=== PATIENT | male | born 1945 | race Caucasian/White ===

== ENCOUNTER 2016-10-28 05:44 | Day surgery (SDC) | payer OTHER, MEDICARE ==
[2016-10-28] VITALS (12 sets, daily range): BP systolic 112–198; BP diastolic 62–92; PULSE 64–78; RESP 13–19; TEMP 98.2–98.9; O2SAT 94–100; Ht 185.4 cm; Wt 87.8 kg
[~2016-10-28] VITALS: Ht 185.4 cm; Wt 87.8 kg
[~2016-10-28 05:44] MED LIST: ASPI81TA2 PO; CIPR-212 PO; FEXO180T94 PO; HYDR-4246 PO; METF-47 PO; NAPR500T6 PO; ONDA4TAB7 PO; TADA5TAB PO; TAMS-1 PO; TRIA1CAP6 PO
--- OUTSIDE RECORDS SUMMARY | 2016-10-28 05:47 | XMS REPORT ---
Author Author GENERATED, SYSTEM Organization Unknown Address Unknown Phone Unavailable Care Team Providers Care Coordinator Hotels Name Role Phone UNASSIGNED DOCTOR , DOCTOR PP [phone] Reason For Visit Chief Complaint I10, E11.9, N40.0, K63.5 Social History Functional Status Vital Signs Results Problems Encounter Diagnosis No relevant problems exist. Encounters Encounter Diagnosis No relevant problems exist. Plan of Care Procedures No relevant procedures performed. Immunizations No immunizations administered or ordered. Hospital Course Hospital Discharge Instructions Allergies, Adverse Reactions, Alerts * Latex Allergy has not been assessed. * IV Contrast Allergy has not been assessed. Medication Medication reconciliation has not been performed.
--- OUTSIDE RECORDS SUMMARY | 2016-10-28 05:47 | XMS REPORT ---
Author Author GENERATED, SYSTEM Organization Unknown Address Unknown Phone Unavailable Care Team Providers Care Slime Plant Operator Name Role Phone UNASSIGNED DOCTOR , DOCTOR PP [phone] Reason For Visit Chief Complaint E11.9, I10 Social History Functional Status Vital Signs Results Problems Encounter Diagnosis No relevant problems exist. Encounters Encounter Diagnosis No relevant problems exist. Plan of Care Procedures No relevant procedures performed. Immunizations No immunizations administered or ordered. Hospital Course Hospital Discharge Instructions Allergies, Adverse Reactions, Alerts * Contrast causes Swelling/Edema. * Iodine and Iodide Containing Products causes unspecified. * Latex Allergy has not been assessed. * IV Contrast Allergy has not been assessed. * No Known Food Allergies. Medication Medication reconciliation has not been performed.
--- OUTSIDE RECORDS SUMMARY | 2016-10-28 05:47 | XMS REPORT ---
Author Author GENERATED, SYSTEM Organization Unknown Address Unknown Phone Unavailable Care Team Providers Care Fire Extinguisher Repairer Name Role Phone UNASSIGNED DOCTOR , DOCTOR PP [phone] Reason For Visit Reason for Visit from 04/22/2016 3:05 PM:* Pt Stated Reason for Adm : Shingles Vax Chief Complaint PREVENTATIVE MANTENANCE Social History Functional Status Functional Status from 04/22/2016 3:05 PM:* LOC : Alert * Oriented To : Person,Place,Time Vital Signs Hospital Vital Signs from 04/22/2016 3:05 PM:* Weight : 186/ kg * Height : 6/1.5 ft,in * Height : 6/1.5 ft,in * Temperature : 97.5 F * Pulse : 83 * Respirations : 18 * BP : 130/82 Results Problems Encounter Diagnosis No relevant problems exist. Encounters Encounter Diagnosis No relevant problems exist. Plan of Care Procedures No relevant procedures performed. Immunizations No immunizations administered or ordered. Hospital Course Hospital Discharge Instructions Allergies, Adverse Reactions, Alerts * Contrast causes Swelling/Edema. * Iodine and Iodide Containing Products causes unspecified. * No Latex Allergy. * No Known Food Allergies. Medication Medication reconciliation has not been performed.
--- OUTSIDE RECORDS SUMMARY | 2016-10-28 05:47 | XMS REPORT ---
Author Author GENERATED, SYSTEM Organization Unknown Address Unknown Phone Unavailable Care Team Providers Care Section Gang Worker Name Role Phone UNASSIGNED DOCTOR , DOCTOR PP [phone] Reason For Visit Chief Complaint 250.00 Social History Functional Status Vital Signs Results [...]
--- OUTSIDE RECORDS SUMMARY | 2016-10-28 05:47 | XMS REPORT ---
Author Author GENERATED, SYSTEM Organization Unknown Address Unknown Phone Unavailable Care Team Providers Care Tenter Frame Operator Name Role Phone UNASSIGNED DOCTOR , DOCTOR PP [phone] Reason For Visit Chief Complaint 600.00 401.9 250.00 789.09 592.0 Social History Functional Status Vital Signs Results [...]
--- OUTSIDE RECORDS SUMMARY | 2016-10-28 05:47 | XMS REPORT ---
Author Author GENERATED, SYSTEM Organization Unknown Address Unknown Phone Unavailable Care Team Providers Care Elementary School Director Name Role Phone UNASSIGNED DOCTOR , DOCTOR PP [phone] Reason For Visit Chief Complaint SERUM MAGNESIUM, PHOSPH, URIC ACIS, BMP,592.0 Social History Functional Status Vital Signs Results [...]
--- OUTSIDE RECORDS SUMMARY | 2016-10-28 05:47 | XMS REPORT | Continuity of Care Document ---
Author Author [facility] Organization [facility] Address Unknown Phone Unavailable Support Name Relationship Address Phone LOYD BEARD MD Caregiver [address] [place] [phone] BETHANY LOYD DO Caregiver [facility] [address] [place] [phone] ANGELITO WALKER MD Caregiver [address] [place] [address] RONIT MCLAUGHLIN Next Of Kin [address] [place] [address] [address] [place] [id number] Insurance Providers Payer Name Policy Number Subscriber Name Relationship Benefit Management Pcn [id number] Ronit Mclaughlin Spouse Medicare Part A Only [id number] Matt Mclaughlin 19 Self Advance Directives Directive Response Recorded Date/Time Advanced Directives Type None 09/15/14 1:38pm Problems Medical Problems Problem Onset Date Status Urolithiasis Unknown Active Urolithiasis Unknown Active Medications Medication Dose Route Sig Days/Qty Instructions Order Date Discontinued Date Status Triamterene/Hydrochlorothiazid 1 Udtab PO DAILY 04/22/10 Active Aspirin 81 Mg PO DAILY 04/22/10 05/05/14 Discontinued Fish Oil/[place]-3 Fatty Acids 1 Cap PO DAILY 04/21/10 04/22/10 Discontinued Ibuprofen 200 Mg PO FOUR TIMES DAILY 04/21/10 04/22/10 Discontinued Calcium Carbonate 1 Tab PO DAILY 04/21/10 04/22/10 Discontinued Metformin Hcl 500 Mg PO TWICE A DAY 06/10/10 Active Fexofenadine HCl 1 Tab PO DAILY Do not drink Apple, [place], or Grapefruit juice within 4 05/04/14 Active Naproxen Sodium 220 Mg PO NEEDED 05/04/14 05/05/14 Discontinued Aspirin 1 Tab PO DAILY 09/15/14 Active Ciprofloxacin HCl 500 Mg PO EVERY 12 HOURS 7 Days 09/15/14 Active Ondansetron 4 Mg PO Q6H/0300,0900,1500,2100 15 Qty Oral disintegrating tablet 09/15/14 Active Tamsulosin HCl 0.4 Mg PO BEDTIME 7 Qty 09/15/14 Active Hydrocodone/Acetaminophen 1-2 Tab PO Q4H PRN PAIN 30 Qty 09/15/14 Active Social History Social History Problem Response Recorded Date/Time Chewing Tobacco Status No 08/23/2013 9:15am Hx Substance Use No 09/15/2014 1:41pm Hx Alcohol Use Y RARELY 09/15/2014 1:41pm Has the pt used tobacco in the last 12 months No 05/04/2014 12:25pm Query Response Start Date Stop Date Smoking Status Never smoker Hospital Discharge Instructions No hospital discharge instructions. Plan of Care No plan of care. Functional Status Query Response Date Recorded Physical Hygiene Self September 15, 2014 1:41pm Disabilities None September 15, 2014 1:41pm Devices Used Glasses September 15, 2014 1:41pm Dressing Self September 15, 2014 1:41pm Ambulation Self September 15, 2014 1:41pm Diet Self September 15, 2014 1:41pm Mental Status Alert Oriented September 15, 2014 4:20pm Disabilities None September 15, 2014 1:41pm Devices Used Glasses September 15, 2014 1:41pm Physical Hygiene Self September 15, 2014 1:41pm Dressing Self September 15, 2014 1:41pm Ambulation Self September 15, 2014 1:41pm Diet Self September 15, 2014 1:41pm Allergies, Adverse Reactions, Alerts Allergen Type Severity Reaction Status Last Updated Iodinated Contrast Media - IV Dye Allergy Unknown Active 05/04/14 Iodine Allergy Unknown Active 05/04/14 Immunizations Name Given Type Hx Influenza Vaccination Y Apr 2014 Historical Hx Pneumococcal Vaccination No Historical Hx Influenza Vaccination Y Apr 2014 Historical Vital Signs Acute Vital Signs Vital Response Date/Time Temperature (Fahrenheit) 97.3 deg F (96.8 - 99.1) Temperature (Calculated Celsius) 36.85565 degrees C (36.0 - 37.3) Pulse Rate (adult) 69 bpm (60 - 100) Respiratory Rate 18 breaths/min (10 - 20) O2 Sat by Pulse Oximetry 97 % (90 - 100) Blood Pressure 112/55 mm Hg Height 6 ft 1 in Weight 194 lb Body Mass Index 25.0 kg/m^2 Results Test Source Date Result Interp. Ref. Range Comments Activated Partial Thromboplast Time May 04, 2014 2:20pm 39.1 SEC H 24-36 Alanine Aminotransferase (ALT/SGPT) September 15, 2014 2:14pm 45 U/L N 21- 72 Albumin September 15, 2014 2:14pm 4.4 G/DL N 3.5-5.0 Albumin/Globulin Ratio September 15, 2014 2:14pm 1.3 RATIO N 1.1-2.2 Alkaline Phosphatase September 15, 2014 2:14pm 71 U/L N 38-126 Anion Gap September 15, 2014 2:14pm 13 MEQ/L N 5-15 Aspartate Amino Transf (AST/SGOT) September 15, 2014 2:14pm 35 U/L N 17-59 BUN/Creatinine Ratio September 15, 2014 2:14pm 15 RATIO N 6-26 Band Neutrophils # September 15, 2014 2:14pm 0.3 T/MM3 - Band Neutrophils % September 15, 2014 2:14pm 2.0 % N 0-6 Basophils # (Auto) May 05, 2014 5:13am 0.0 T/MM3 N 0-0.2 Basophils (%) (Auto) May 05, 2014 5:13am 0.1 % N 0-2 Blood Urea Nitrogen September 15, 2014 2:14pm 16.0 MG/DL N 9-20 Calcium Level September 15, 2014 2:14pm 9.2 MG/DL N 8.4-10.2 Calculated Osmolality September 15, 2014 2:14pm 276 MOSM/KG N 261-280 Carbon Dioxide Level September 15, 2014 2:14pm 26 MEQ/L N 22-30 Chemistry Specimen Hemolysis September 15, 2014 2:14pm < 15 0-25 0-25: No Hemolysis.26-70: Slight Hemolysis - can falsely elevate K and Urine Protein. 71-285: Moderate Hemolysis - can falsely elevate K, Troponin I, CA 19-9, PTH, CSF GLucose, and Urine Protein, and can falsely decrease Phenytoin. 286-999: Gross Hemolysis - can falsely elevate K, Troponin I, CA 19-9, PTH, CSF Glucose, and Urine Protine, and can falsely decrease Phenytoin. Recommend specimen recollection. Chloride Level September 15, 2014 2:14pm 103 MEQ/L N 98-107 Cholesterol Level December 10, 2008 9:23am 208 MG/DL H 132-199 Cholesterol/HDL Ratio December 10, 2008 9:23am 5.0 RATIO N 0-5.0 Creatinine September 15, 2014 2:14pm 1.1 MG/DL N 0.8-1.5 Eosinophils # (Auto) May 05, 2014 5:13am 0.1 T/MM3 N 0-0.5 Eosinophils (%) (Auto) May 05, 2014 5:13am 1.0 % N 0-4 Globulin September 15, 2014 2:14pm 3.4 G/DL N 2.4-3.6 Glomerular Filtration Rate Calc September 15, 2014 2:14pm 67 - Glucometer May 05, 2014 10:55am 129 mg/dL H 75-110 Glucose Level September 15, 2014 2:14pm 136 MG/DL H 75-110 HDL Cholesterol Direct December 10, 2008 9:23am 38 MG/DL L 40-60 Hematocrit September 15, 2014 2:14pm 43.4 % N 41-53 Hemoglobin September 15, 2014 2:14pm 14.5 GM/DL N 13.5-17.5 Icterus Index September 15, 2014 2:14pm < 2 0-7 Immature Granulocyte # (Auto) May 05, 2014 5:13am 0.01 T/MM3 N 0.00 -0.03 Immature Granulocyte % (Auto) May 05, 2014 5:13am 0.1 % N 0.0-0.5 LDL Cholesterol, Calculated December 10, 2008 9:23am 139.0 N 66-159 Lab Scanned Report May 04, 2014 1:33pm LAB TEST FORM REQUEST [id number] - Lipase September 15, 2014 2:14pm 250 U/L N 23-300 Lymphocytes # (Auto) May 05, 2014 5:13am 1.2 T/MM3 N 1-4.8 Lymphocytes # (Manual) September 15, 2014 2:14pm 0.7 T/MM3 L 1-4.8 Lymphocytes % (Manual) September 15, 2014 2:14pm 5.0 % L 23-45 Lymphocytes (%) (Auto) May 05, 2014 5:13am 14.2 % L 23-45 Mean Corpuscular Hemoglobin September 15, 2014 2:14pm 28.5 UUG N 26-34 Mean Corpuscular Hemoglobin Concent September 15, 2014 2:14pm 33.4 GM/DL N 31-37 Mean Corpuscular Volume September 15, 2014 2:14pm 85.4 UM3 N 80-100 Mean Platelet Volume September 15, 2014 2:14pm 10.8 UM3 N 9.4-12.4 Monocytes # (Auto) May 05, 2014 5:13am 0.9 T/MM3 H 0-0.8 Monocytes # (Manual) September 15, 2014 2:14pm 0.6 T/MM3 N 0-0.8 Monocytes % (Manual) September 15, 2014 2:14pm 4.0 % N 0-9.0 Monocytes (%) (Auto) May 05, 2014 5:13am 10.8 % H 0-9.0 Neutrophils # (Auto) May 05, 2014 5:13am 6.3 T/MM3 N 1.8-7.7 Neutrophils # (Manual) September 15, 2014 2:14pm 12.7 T/MM3 H 1.8-7.7 Neutrophils % (Manual) September 15, 2014 2:14pm 89.0 % H 33-66 Neutrophils (%) (Auto) May 05, 2014 5:13am 73.8 % H 33-66 Platelet Count September 15, 2014 2:14pm 170 T/MM3 N 130-400 Potassium Level September 15, 2014 2:14pm 3.6 MEQ/L N 3.6-5 Prostate Specific Antigen Screen January 09, 2008 8:20am 1.15 NG/ML N 0- 4.0 Prothromb Time International Ratio May 04, 2014 2:20pm 1.12 H 0.81- 1.09 THERAPUTIC RANGE=2.00-3.00 FOR ANTI-THROMBOSIS THERAPUTIC RANGE=2.50- 3.50 FOR IMPLANTED VALVE RDW Standard Deviation September 15, 2014 2:14pm 38.8 FL N 36.9-50.2 Red Blood Count September 15, 2014 2:14pm 5.08 M/MM3 N 4.50-5.90 Red Cell Morphology Comment September 15, 2014 2:14pm Normal - Sodium Level September 15, 2014 2:14pm 142 MEQ/L N 134-144 Total Bilirubin September 15, 2014 2:14pm 0.50 MG/DL N 0.20-1.30 Total Protein September 15, 2014 2:14pm 7.8 G/DL N 6.3-8.2 Triglycerides Level December 10, 2008 9:23am 155 MG/DL N 40-160 Turbidity September 15, 2014 2:14pm < 20 0-20 Urinalysis Comment September 15, 2014 2:35pm Microscopic not ind. - Has specimen been collected/obtained? Y Urine Bacteria May 04, 2014 11:40am 1+ H - Urine Bilirubin September 15, 2014 2:35pm Negative - Has specimen been collected/obtained? Y Urine Blood September 15, 2014 2:35pm Negative - Has specimen been collected/obtained? Y Urine Collection Type September 15, 2014 2:35pm Voided-not cc-midstr - Has specimen been collected/obtained? Y Urine Color September 15, 2014 2:35pm Yellow - Has specimen been collected/obtained? Y Urine Culture Indicated May 04, 2014 11:40am Cult ordered & setup - Urine Glucose (UA) September 15, 2014 2:35pm Negative - Has specimen been collected/obtained? Y Urine Ketones September 15, 2014 2:35pm 1+ H - Has specimen been collected/ obtained? Y Urine Leukocyte Esterase September 15, 2014 2:35pm Negative - Has specimen been collected/obtained? Y Urine Nitrite September 15, 2014 2:35pm Negative - Has specimen been collected/obtained? Y Urine Protein September 15, 2014 2:35pm Negative - Has specimen been collected/obtained? Y Urine RBC May 04, 2014 11:40am 10-20 /HPF H - Urine Specific [place] September 15, 2014 2:35pm 1.015 - Has specimen been collected/obtained? Y Urine Turbidity September 15, 2014 2:35pm Clear - Has specimen been collected/obtained? Y Urine Urobilinogen September 15, 2014 2:35pm 0.2 EU/DL - Has specimen been collected/obtained? Y Urine WBC May 04, 2014 11:40am 3-5 /HPF - Urine pH September 15, 2014 2:35pm 6.0 - Has specimen been collected/ obtained? Y VLDL Cholesterol December 10, 2008 9:23am 31.0 MG/DL H 0-28 Venous Blood Lactate May 04, 2014 11:40am 1.1 MMOL/L N 0.6-2.2 White Blood Count September 15, 2014 2:14pm 14.3 T/MM3 H 4.5-11.0 Urine Culture Urine, Clean Catch-Midstream May 04, 2014 11:40am Gram Positive Organism Procedures No known history of procedures. Encounters Encounter Location Date/Time Departed Emergency Room [facility] 09/15/14 1:18pm Recent Diagnosis
--- OUTSIDE RECORDS SUMMARY | 2016-10-28 05:47 | XMS REPORT ---
Author Author GENERATED, SYSTEM Organization Unknown Address Unknown Phone Unavailable Care Team Providers Care Outsole Caser Name Role Phone UNASSIGNED DOCTOR , DOCTOR PP [phone] Reason For Visit Chief Complaint 250.00, 401.9, 592.0, 600.00 Social History Functional Status Vital Signs Results [...]
--- OUTSIDE RECORDS SUMMARY | 2016-10-28 05:47 | XMS REPORT | Continuity of Care Document ---
Author Author [facility] Organization [facility] Address Unknown Phone Unavailable Support Name Relationship Address Phone LESTER PURDY DO Caregiver [facility] [address] [place] [address] [place] [address] BETHANY LOYD DO Caregiver [facility] [address] [place] [address] [address] [place] [phone] RONIT MCLAUGHLIN Next Of Kin [address] [place] [address] Insurance Providers Payer Name Policy Number Subscriber Name Relationship Benefit Management Pcn [id number] Ronit Mclaughlin Spouse Medicare Part A Only [id number] Matt Mclaughlin 19 Self Advance Directives Directive Response Recorded Date/Time Ordered Resuscitation Status Full Code 05/04/14 1:49pm Problems No known problems or medical conditions. Medications Medication Dose Route Sig Days/Qty Instructions Order Date Discontinued Date Status Triamterene/Hydrochlorothiazid 1 Udtab PO DAILY 04/22/10 Active Aspirin 81 Mg PO DAILY 04/22/10 05/05/14 Discontinued Fish Oil/[place]-3 Fatty Acids 1 Cap PO DAILY 04/21/10 04/22/10 Discontinued Ibuprofen 200 Mg PO FOUR TIMES DAILY 04/21/10 04/22/10 Discontinued Calcium Carbonate 1 Tab PO DAILY 04/21/10 04/22/10 Discontinued Metformin Hcl 500 Mg PO TWICE A DAY 06/10/10 Active Fexofenadine HCl 1 Tab PO DAILY Do not drink Apple, [place], or Grapefruit juice within 4 05/04/14 Active Naproxen Sodium 220 Mg PO NEEDED 05/04/14 05/05/14 Discontinued Ondansetron 4 Mg PO Q8H @ 0100/0900/1700 PRN NAUSEA 30 Qty Orally disintegrating tablet 05/05/14 Active Hydrocodone/Acetaminophen 1-2 Tab PO EVERY 3-4 HOURS PRN PAIN 30 Qty Active Nitrofurantoin Monohyd/M-Cryst 1 Cap PO TWICE DAILY WITH MEALS 10 Days 05/05/14 Active Mth/Me Blue/Salicy/Na Phos/Hyo 1 Tab PO EVERY 4 HOURS PRN PAIN 40 Qty 05/05/14 Active Social History Social History Problem Response Recorded Date/Time Smoking Status Never smoker 05/04/2014 12:25pm Chewing Tobacco Status No 08/23/2013 9:15am Hx Substance Use No 08/23/2013 9:15am Hx Alcohol Use Y RARELY 08/23/2013 9:15am Has the pt used tobacco in the last 12 months No 05/04/2014 12:25pm Query Response Start Date Stop Date Smoking Status Never smoker Hospital Discharge Instructions Instructions: Care Instructions: Reason for Hospitalization: NEPHROLITHIASIS, HYDRONEPHROSIS I was in the hospital because (patient own words): States,"Pain and they found blood in my urine. I have a stone." Discharge Diet: DIABETIC Discharge Activity: TOLERATED Follow Up Appointments: FOLLOW UP WITH DR. BEARD IN HIS OFFICE ON 05/14/14 AT 11:[address] UP [address] LOYD AT [facility] ([phone]) IN 1-2 WEEKS. GET CBC WITH DIFF, BMP AND PTT, PT AND INR AT [facility] BEFORE FOLLOW-UP APPOINTMENT WITH DR. LOYD AND FAX TO DR. LOYD OFFICE. ORDERS FAXED; TAKE COPY OF ORDERS WITH YOU TO Patient Instructions: RETURN TO CARE IMMEDIATELY IF BACK PAIN, GROIN PAIN, BLOOD IN URINE, NAUSEA, VOMITING, ABDOMINAL PAIN OCCUR. General Information: DO NOT TAKE ANY TYLENOL PRODUCTS AT ALL WHILE TAKING NORCO. Condition at time of discharge: Good KEEP THE AREA DRY. Condition at time of discharge: Good incision is completely healed. Mepilex 1.Dressing to remain in place until your follow up appointment. 2.If this dressing starts peeling up slightly, it may be reinforced, if it peels excessively, notify your surgeon's office. 3.You may shower with the dressing in place, but do not submerge in water 4.Do not allow water to seep under the dressing, if it should seep under, remove the dressing and notify your surgeon. Notify Physician If: Call your Surgeon if you have: 1.Chest pain, difficulty breathing, fever>100.5 degrees, chills, heart rate >100, confusion, or persistent nausea/vomitting. 2.Severe pain, swelling, redness, or warmth in either of your legs. 3.During office hours, call [phone] 4. After hours, please call [facility] at [phone], and have the heddle machine operator page your Surgeon IN THE EVENT OF AN EMERGENCY, seek medical care at the nearest Emergency Room Condition at time of discharge: Good Plan of Care Discharge Date 05/05/14 5:00pm Disposition 01 DISCHARGED HOME, SELF-CARE Instructions/Education Provided DI for Cystoscopy DI for Ureteral Stent Placement Prescriptions See Medications Section Functional Status No functional status results. Allergies, Adverse Reactions, Alerts Allergen Type Severity Reaction Status Last Updated Iodinated Contrast Media - IV Dye Allergy Unknown Active 05/04/14 Iodine Allergy Unknown Active 05/04/14 Immunizations Name Given Type Hx Influenza Vaccination Y Apr 2014 Historical Hx Pneumococcal Vaccination No Historical Hx Influenza Vaccination Y Apr 2014 Historical Vital Signs Acute Vital Signs Vital Response Date/Time Temperature (Fahrenheit) 95.6 deg F (96.8 - 99.1) Temperature (Calculated Celsius) 35.92505 degrees C (36.0 - 37.3) Temperature Source Oral Pulse Rate (adult) 88 bpm (60 - 100) O2 Sat by Pulse Oximetry 97 % (90 - 100) Oxygen Delivery Method Room Air Blood Pressure 144/79 mm Hg Blood Pressure Source Automatic Cuff Height 6 ft 1 in Weight 203 lb Body Mass Index 26.0 kg/m^2 Results Test Source Date Result Interp. Ref. Range Comments Activated Partial Thromboplast Time May 04, 2014 2:20pm 39.1 SEC H 24-36 Alanine Aminotransferase (ALT/SGPT) May 05, 2014 5:13am 38 U/L N 21 -72 Albumin May 05, 2014 5:13am 3.7 G/DL N 3.5-5.0 Albumin/Globulin Ratio May 05, 2014 5:13am 1.4 RATIO N 1.1-2.2 Alkaline Phosphatase May 05, 2014 5:13am 56 U/L DN 38-126 Anion Gap May 05, 2014 5:13am 9 MEQ/L N 5-15 Aspartate Amino Transf (AST/SGOT) May 05, 2014 5:13am 18 U/L N 17- 59 BUN/Creatinine Ratio May 05, 2014 5:13am 16 RATIO N 6-26 Band Neutrophils # May 04, 2014 11:40am 0.1 T/MM3 - Band Neutrophils % May 04, 2014 11:40am 1.0 % N 0-6 Basophils # (Auto) May 05, 2014 5:13am 0.0 T/MM3 N 0-0.2 Basophils (%) (Auto) May 05, 2014 5:13am 0.1 % N 0-2 Blood Urea Nitrogen May 05, 2014 5:13am 18.0 MG/DL N 9-20 Calcium Level May 05, 2014 5:13am 8.7 MG/DL DN 8.4-10.2 Calculated Osmolality May 05, 2014 5:13am 280 MOSM/KG N 261-280 Carbon Dioxide Level May 05, 2014 5:13am 31 MEQ/L H 22-30 Chemistry Specimen Hemolysis May 05, 2014 5:13am < 15 0-25 0-25 : No Hemolysis.26-70: Slight Hemolysis - can falsely elevate K and Urine Protein. 71-285: Moderate Hemolysis - can falsely elevate K, Troponin I, CA 19-9, PTH, CSF GLucose, and Urine Protein, and can falsely decrease Phenytoin. 286-999: Gross Hemolysis - can falsely elevate K, Troponin I, CA 19-9, PTH, CSF Glucose, and Urine Protine, and can falsely decrease Phenytoin. Recommend specimen recollection. Chloride Level May 05, 2014 5:13am 104 MEQ/L N 98-107 Cholesterol Level December 10, 2008 9:23am 208 MG/DL H 132-199 Cholesterol/HDL Ratio December 10, 2008 9:23am 5.0 RATIO N 0-5.0 Creatinine May 05, 2014 5:13am 1.1 MG/DL N 0.8-1.5 Eosinophils # (Auto) May 05, 2014 5:13am 0.1 T/MM3 N 0-0.5 Eosinophils (%) (Auto) May 05, 2014 5:13am 1.0 % N 0-4 Globulin May 05, 2014 5:13am 2.7 G/DL N 2.4-3.6 Glomerular Filtration Rate Calc May 05, 2014 5:13am 67 - Glucometer May 05, 2014 10:55am 129 mg/dL H 75-110 Glucose Level May 05, 2014 5:13am 120 MG/DL H 75-110 HDL Cholesterol Direct December 10, 2008 9:23am 38 MG/DL L 40-60 Hematocrit May 05, 2014 5:13am 40.2 % DL 41-53 Hemoglobin May 05, 2014 5:13am 13.3 GM/DL DL 13.5-17.5 Icterus Index May 05, 2014 5:13am < 2 0-7 Immature Granulocyte # (Auto) May 05, 2014 5:13am 0.01 T/MM3 N 0.00 -0.03 Immature Granulocyte % (Auto) May 05, 2014 5:13am 0.1 % N 0.0-0.5 LDL Cholesterol, Calculated December 10, 2008 9:23am 139.0 N 66-159 Lab Scanned Report May 04, 2014 1:33pm LAB TEST FORM REQUEST - Lymphocytes # (Auto) May 05, 2014 5:13am 1.2 T/MM3 N 1-4.8 Lymphocytes # (Manual) May 04, 2014 11:40am 0.8 T/MM3 L 1-4.8 Lymphocytes % (Manual) May 04, 2014 11:40am 7.0 % L 23-45 Lymphocytes (%) (Auto) May 05, 2014 5:13am 14.2 % L 23-45 Mean Corpuscular Hemoglobin May 05, 2014 5:13am 28.9 UUG N 26-34 Mean Corpuscular Hemoglobin Concent May 05, 2014 5:13am 33.1 GM/DL N 31-37 Mean Corpuscular Volume May 05, 2014 5:13am 87.2 UM3 N 80-100 Mean Platelet Volume May 05, 2014 5:13am 10.6 UM3 N 9.4-12.4 Monocytes # (Auto) May 05, 2014 5:13am 0.9 T/MM3 H 0-0.8 Monocytes # (Manual) May 04, 2014 11:40am 0.6 T/MM3 N 0-0.8 Monocytes % (Manual) May 04, 2014 11:40am 5.0 % N 0-9.0 Monocytes (%) (Auto) May 05, 2014 5:13am 10.8 % H 0-9.0 Neutrophils # (Auto) May 05, 2014 5:13am 6.3 T/MM3 N 1.8-7.7 Neutrophils # (Manual) May 04, 2014 11:40am 10.5 T/MM3 H 1.8-7.7 Neutrophils % (Manual) May 04, 2014 11:40am 87.0 % H 33-66 Neutrophils (%) (Auto) May 05, 2014 5:13am 73.8 % H 33-66 Platelet Count May 05, 2014 5:13am 155 T/MM3 N 130-400 Potassium Level May 05, 2014 5:13am 3.5 MEQ/L L 3.6-5 Prostate Specific Antigen Screen January 09, 2008 8:20am 1.15 NG/ML N 0- 4.0 Prothromb Time International Ratio May 04, 2014 2:20pm 1.12 H 0.81- 1.09 THERAPUTIC RANGE=2.00-3.00 FOR ANTI-THROMBOSIS THERAPUTIC RANGE=2.50- 3.50 FOR IMPLANTED VALVE RDW Standard Deviation May 05, 2014 5:13am 39.8 FL N 36.9-50.2 Red Blood Count May 05, 2014 5:13am 4.61 M/MM3 N 4.50-5.90 Sodium Level May 05, 2014 5:13am 144 MEQ/L N 134-144 Total Bilirubin May 05, 2014 5:13am 0.80 MG/DL N 0.20-1.30 Total Protein May 05, 2014 5:13am 6.4 G/DL N 6.3-8.2 Triglycerides Level December 10, 2008 9:23am 155 MG/DL N 40-160 Turbidity May 05, 2014 5:13am < 20 0-20 Urine Bacteria May 04, 2014 11:40am 1+ H - Urine Bilirubin May 04, 2014 11:40am Negative - Urine Blood May 04, 2014 11:40am 3+ H - Urine Collection Type May 04, 2014 11:40am Cleancatch-midstream - Urine Color May 04, 2014 11:40am Yellow - Urine Culture Indicated May 04, 2014 11:40am Cult ordered & setup - Urine Glucose (UA) May 04, 2014 11:40am Negative - Urine Ketones May 04, 2014 11:40am 1+ H - Urine Leukocyte Esterase May 04, 2014 11:40am Negative - Urine Nitrite May 04, 2014 11:40am Negative - Urine Protein May 04, 2014 11:40am Negative - Urine RBC May 04, 2014 11:40am 10-20 /HPF H - Urine Specific [place] May 04, 2014 11:40am >=1.030 H - Urine Turbidity May 04, 2014 11:40am Clear - Urine Urobilinogen May 04, 2014 11:40am 0.2 EU/DL - Urine WBC May 04, 2014 11:40am 3-5 /HPF - Urine pH May 04, 2014 11:40am 5.5 - VLDL Cholesterol December 10, 2008 9:23am 31.0 MG/DL H 0-28 Venous Blood Lactate May 04, 2014 11:40am 1.1 MMOL/L N 0.6-2.2 White Blood Count May 05, 2014 5:13am 8.6 T/MM3 N 4.5-11.0 Urine Culture Urine, Clean Catch-Midstream May 04, 2014 11:40am Gram Positive Organism Name: MATT MCLAUGHLIN Unit #: [id number] : 1945 Sex: M Loc / Svc: HALLEY DOS: 05/04/14 Signed Report #: [id number] DIAGNOSTIC IMAGING REPORT TYPE OF EXAM: CT RENAL W/O CONTRAST Dictated By: GORGE JOSE MD INDICATION: ITS.REASON: [phone],599.70 KIDNEY STONE COMPARISON: none. CT RENAL W/O CONTRAST: CT with kidney stone protocol. Evidence of a 5 mm calculus in the mid left ureter that is causing moderate hydronephrosis. There is perinephric fat infiltration that is consistent with a kidney stone. Right kidney has approximately 4 nonobstructing calculi with diameters of approximately 2-5 mm. Evidence of a 1-2 cm right kidney cyst. No evidence of gallstones. Liver, spleen, pancreas, and bladder appear normal. Evidence of mildly enlarged prostate with calcifications. No evidence of diverticulitis. IMPRESSION: Nonobstructing right kidney stones. Stone in the mid left ureter causing hydronephrosis. . Procedures Procedure Status Date Provider(s) Cystoscopy with calculus extraction completed 05/05/14 LOYD BEARD MD Encounters Encounter Location Date/Time Discharged Inpatient [facility] 05/04/14 12:14pm Registered Clinic [facility] 05/04/14 11:03am
--- OUTSIDE RECORDS SUMMARY | 2016-10-28 05:47 | XMS REPORT ---
Author Author [facility] Organization Unknown Address Unknown Phone Unavailable Care Team Providers Care Paper Counter Name Role Phone UNASSIGNED DOCTOR , DOCTOR PP [phone] Reason For Visit Chief Complaint N40.1 Social History Functional Status Vital Signs Results Reference Lab from 01/03/2016 8:30 AMPROSTATE-SPECIFIC AG 2.3 ng/mL (0.0-4.0 ng/mL ) Problems Encounter Diagnosis No relevant problems exist. [...]
--- OUTSIDE RECORDS SUMMARY | 2016-10-28 05:48 | XMS REPORT ---
Author Author [facility] Organization Unknown Address Unknown Phone Unavailable Care Team Providers Care Powerhouse Attendant Name Role Phone UNASSIGNED DOCTOR , DOCTOR PP [phone] Reason For Visit Chief Complaint COUGH,SORE THROAT,FEVER Social History Functional Status Vital Signs Results [...]
--- OUTSIDE RECORDS SUMMARY | 2016-10-28 05:48 | XMS REPORT ---
Author Author [facility] Organization Unknown Address Unknown Phone Unavailable Care Team Providers Care Grain Shipper Name Role Phone UNASSIGNED DOCTORMD DOCTOR PP [phone] Reason For Visit Chief Complaint 250.00,36412,401.9 Social History Functional Status Vital Signs Results [...]
--- OUTSIDE RECORDS SUMMARY | 2016-10-28 05:48 | XMS REPORT ---
Author Author [facility] Organization Unknown Address Unknown Phone Unavailable Care Team Providers Care Concrete Layer Name Role Phone UNASSIGNED DOCTOR , DOCTOR PP [phone] Reason For Visit Chief Complaint E11.9 N40.0 I10 Social History Functional Status Vital Signs Results Chemistry from 02/03/2016 8:25 AMSODIUM 141 MMOL/L (136-145 MMOL/L) POTASSIUM 3.7 MMOL/L (3.5-5.1 MMOL/L) CHLORIDE 107 MMOL/L (98-107 MMOL/L) TCO2 28.6 MMOL/L (21.0-32.0 MMOL/L) *ANION GAP 5.4 MMOL/L L (8.0-16.0 MMOL/L) BUN 16 MG/DL (7-18 MG/DL) CREATININE 0.97 MG/DL (0.70-1.30 MG/DL) *BUN/CREATININE RATIO 16.5 (9.1-17.0 ) GLUCOSE 109 MG/DL H (65-99 MG/DL) *GFR EST NON AFR [place] 79 ML/MIN *GFR EST AFR AMER >90 ML/MIN CALCIUM 8.4 MG/DL L (8.5-10.1 MG/DL) BILIRUBIN TOTAL 0.50 MG/DL (0.20-1.00 MG/DL) TOTAL PROTEIN 6.8 GM/DL (6.4-8.2 GM/DL) ALBUMIN 3.6 GM/DL (3.4-5.0 GM/DL) *GLOBULIN 3.2 GM/DL (2.3-3.5 GM/DL) *A/G RATIO 1.1 MG/DL L (1.5-2.2 MG/DL) ALK PHOS 63 U/L (46-116 U/L) ALT (SGPT) 34 U/L (14-59 U/L) AST (SGOT) 22 U/L (15-37 U/L) *EST AVG GLUCOSE 122.6 gm/dl CHOLESTEROL 170 MG/DL (50-199 MG/DL) TRIGLYCERIDES 117 MG/DL (0-149 MG/DL) HDL CHOLESTEROL 43 MG/DL (40-60 MG/DL) LDL (CALCULATED CHOL 104 MG/DL H (0-99 MG/DL) HEMOGLOBIN A1C 5.9 % (4.5-6.2 %) Reference Lab from 02/03/2016 8:30 AMMICROALBUMIN URINE RANDOM 35.6 ug/mL (Not Estab. ug/mL) Problems Encounter Diagnosis No relevant problems exist. [...]
--- OUTSIDE RECORDS SUMMARY | 2016-10-28 05:48 | XMS REPORT ---
Author Author [facility] Organization Unknown Address Unknown Phone Unavailable Care Team Providers Care Wood Polisher Name Role Phone UNASSIGNED DOCTOR , DOCTOR PP [phone] Reason For Visit Chief Complaint SERUM MAGNESIUM, PHOSPH URIC ACID BMP,592.0 Social History Functional Status Vital Signs [...]
--- OUTSIDE RECORDS SUMMARY | 2016-10-28 05:48 | XMS REPORT | Continuity of Care Document ---
Author Author [facility] Organization [facility] Address Unknown Phone Unavailable Support Name Relationship Address Phone LESTER PURDY DO Caregiver [facility] [address] [place] [address] [place] [address] BETHANY LOYD DO Caregiver [facility] [address] [place] [address] [address] [place] [phone] RONIT MCLAUGHLIN Next Of Kin [address] [place] [address] Insurance Providers Payer Name Policy Number Subscriber Name Relationship Benefit Management Pcn [id number] Ronit Mclaughlin Spouse Medicare Part A Only [id number] Matt Mclaughlin 19 Self Advance Directives Directive Response Recorded Date/Time Ordered Resuscitation Status Full Code 05/04/14 1:49pm Problems No known problems or medical conditions. Medications Medication Dose Route Sig Days/Qty Instructions Order Date Discontinued Date Status Triamterene/Hydrochlorothiazid 1 Udtab PO DAILY 04/22/10 Active Aspirin 81 Mg PO DAILY 04/22/10 05/05/14 Discontinued Fish Oil/[place]-3 Fatty Acids 1 Cap PO DAILY 04/21/10 04/22/10 Discontinued Ibuprofen 200 Mg PO FOUR TIMES DAILY 04/21/10 04/22/10 Discontinued Calcium Carbonate 1 Tab PO DAILY 04/21/10 04/22/10 Discontinued Metformin Hcl 500 Mg PO TWICE A DAY 06/10/10 Active Fexofenadine HCl 1 Tab PO DAILY Do not drink Apple, [place], or Grapefruit juice within 4 05/04/14 Active [...] Care No plan of care. Functional Status No functional status results. Allergies, [...] F (96.8 - 99.1) Temperature (Calculated Celsius) 35.42350 degrees C (36.0 - 37.3) Temperature Source [...] 05, 2014 5:13am 31 MEQ/L H 22-30 Chloride Level May 05, 2014 5:13am 104 [...] 05, 2014 5:13am 2.7 G/DL N 2.4-3.6 Glucose Level May 05, 2014 5:13am 120 MG/DL H 75-110 Hematocrit May 05, 2014 5:13am 40.2 % DL 41-53 Hemoglobin May 05, 2014 5:13am 13.3 GM/DL DL 13.5-17.5 LDL Cholesterol, Calculated December 10, 2008 9:23am 139.0 N 66-159 Lymphocytes # (Auto) May 05, 2014 5:13am [...] 10, 2008 9:23am 155 MG/DL N 40-160 Urine Bacteria May 04, 2014 11:40am 1+ [...] 11:40am 10-20 /HPF H - Urine Specific [place] May 04, 2014 11:40am >=1.030 H - Urine Turbidity May 04, 2014 11:40am Clear - Urine Urobilinogen May 04, 2014 11:40am 0.2 EU/DL - Urine WBC May 04, 2014 11:40am 3-5 /HPF - Urine pH May 04, 2014 11:40am 5.5 - VLDL Cholesterol December 10, 2008 9:23am 31.0 MG/DL H 0-28 White Blood Count May 05, 2014 5:13am 8.6 T/MM3 N 4.5-11.0 Chemistry Specimen Hemolysis May 05, 2014 5:13am [...] can falsely decrease Phenytoin. Recommend specimen recollection. Glucometer May 05, 2014 10:55am 129 mg/dL H 75-110 Lab Scanned Report May 04, 2014 1:33pm LAB TEST FORM REQUEST [id number] - HDL Cholesterol Direct December 10, 2008 9:23am 38 MG/DL L 40-60 Turbidity May 05, 2014 5:13am < 20 0-20 Glomerular Filtration Rate Calc May 05, 2014 5:13am 67 - Immature Granulocyte # (Auto) May 05, 2014 5:13am 0.01 T/MM3 N 0.00 -0.03 Immature Granulocyte % (Auto) May 05, 2014 5:13am 0.1 % N 0.0-0.5 Venous Blood Lactate May 04, 2014 11:40am 1.1 MMOL/L N 0.6-2.2 Icterus Index May 05, 2014 5:13am < 2 0-7 Urine Culture Urine, Clean Catch-Midstream May 04, 2014 11:40am Gram Positive Organism Name: MATT MCLAUGHLIN Unit #: [id number] : 1945 Sex: M Loc / Svc: HALLEY DOS: 05/04/14 Signed Report #: [id number] DIAGNOSTIC IMAGING REPORT TYPE OF EXAM: CT [...] LOYD BEARD MD Encounters Encounter Location Date/Time Registered Clinic [facility] 05/04/14 11:03am
--- OUTSIDE RECORDS SUMMARY | 2016-10-28 05:48 | XMS REPORT | Summary of Care ---
Author Author Flakito Clark M.D. Organization Unknown Address Unknown Phone Unavailable Care Team Providers Care Glove Presser Name Role Phone Flakito Clark M.D. Unavailable Unavailable Luis E Milner PP Unavailable Unavailable Unavailable Functional Status Functional Status Health Issues* Name Dates Details Functional status health issues are not documented Status: Cognitive Status Health Issues* Name Dates Details Cognitive status health issues are not documented Status: Problems Name Dates Details Myopia (367.1, H52.10) Status: Active Presbyopia (367.4, H52.4) Status: Active Vitreous disorder (379.29, H43.9) Status: Active Round hole of retina without detachment, left (361.31, H33.322) Status: Active Lentigo (709.09, L81.4) Status: Active Chalazion (373.2, H00.19) Status: Active Diabetes mellitus (250.00, E11.9) Status: Active 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, 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 Actinic keratosis (702.0, L57.0) Status: Active Seborrheic keratosis (702.19, L82.1) Status: Active Diabetes mellitus type 2 without retinopathy (250.00, E11.9) Status: Active 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, 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 Combined form of senile cataract of left eye (366.19, H25.812) Status: Active Nodular prostate with urinary obstruction (600.11, N40.3) Status: Active Prostatic stone (602.0, N42.0) Status: Active Left ureteral calculus (592.1, N20.1) Status: Active Ureteral colic (788.0, N23) Status: Active Ureteric obstruction (593.4, N13.5) Status: Active Retained ureteral stent (V43.89, Z96.0) Status: Active Hyperoxaluria (271.8, E72.53) Status: Active Low urine output (788.5, R34) Status: Active Hypernatriuria (276.0, E87.0) Status: Active BPH with obstruction/lower urinary tract symptoms (600.01, N40.1) Status: Active History of kidney stones (V13.01, Z87.442) Status: Active Erectile dysfunction (607.84, N52.9) Status: Active Medications Name Dates Details MetFORMIN HCl - 500 MG Oral Tablet TAKE 1 TABLET EVERY 12 HOURS WITH FOOD. * Started 02-May-2013 ActiveAleve 220 MG Oral Capsule TAKE 1 TABLET DAILY NEEDED. * Refills: 0 * Started 02-May-2013 ActiveAllegra Allergy 180 MG Oral Tablet TAKE 1 TABLET DAILY NEEDED. * Refills: 0 * Started 02-May-2013 ActiveAspirin 81 MG TABS TAKE 1 TABLET DAILY. * Refills: 0 * Started 02-May-2013 ActiveCialis 5 MG Oral Tablet TAKE 1 TABLET DAILY 1 HOUR BEFORE NEEDED * Quantity: 30 Refills: 0 Flakito Clark M.D.ActiveTriamterene-HCTZ 37.5-25 MG Oral Capsule TAKE 1 CAPSULE DAILY. 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) Status: Resolved History of BPH (benign prostatic hypertrophy) (600.00, N40.0) Status: Resolved History of Dyslipidemia (272.4, E78.5) Status: Resolved History of osteoarthritis (V13.4, Z87.39) Status: Resolved History of Plantar fasciitis (728.71, M72.2) Status: Resolved History of skin cancer (V10.83, Z85.828) Status: Resolved History of type 2 diabetes mellitus (V12.29, Z86.39) Status: Resolved Procedures Procedure Dates Details History of Biopsy Of The Prostate Needle History of Cystoscopy (Diagnostic) History of Surgical Equipment Laser Devices PVP History of Cystoscopy With Ureteroscopy Left Procedures not documented Immunization Name Dates Details Immunizations not documented Family History Unknown Family Member* Name Dates Details Family history of glaucoma (V19.11, Z83.511) Comments: Family History Status: Active Family history of colonic polyps (V18.51, Z83.71) Comments: Family History Status: Active Mother* Name Dates Details Family history of diabetes mellitus (V18.0, Z83.3) Status: Active Family history of peripheral vascular disease (V17.49, Z82.49) Status: Active Family history of cardiac disorder (V17.49, Z82.49) Status: Active Father* Name Dates Details Family history of diabetes mellitus (V18.0, Z83.3) Status: Active Family history of lymphoma (V16.7, Z80.2) Status: Active Social History Name Dates Details Smoking Status* Unknown if ever smoked * Never smoker Vital Signs Date Test Result Details 14:35 BP Systolic 124 mm[Hg] Status: BP Diastolic 84 mm[Hg] Status: Heart Rate 90 /min Status: Height 72 in Status: Weight 186 lb Status: Body Mass Index Calculated 25.23 kg/m2 Status: Body Surface Area Calculated 2.07 m2 Status: Results Date Description Value Details Results not documented Plan of Care Planned Observations* Name Dates Details Planned Goals not documented Goal Planned Encounters* Appointment; Provider: Russell Whatley On 10:45 * Appointment; Provider: Tay Bailey On 02-Jun-2016 08:45 * Appointment; Provider: Adria Ordoñez On 20-Apr-2016 08:30 Instructions * Instructions not documented Encounters Appointment; Flakito Clark Encounter Diagnosis: Problem not documented On 14:30 Appointment; Tay Bailey Encounter Diagnosis: Problem not documented On 29-May-2015 08:45 Appointment; Adria Ordoñez Encounter Diagnosis: Problem not documented On 18-Apr-2015 08:30 Appointment; Adria Ordoñez Encounter Diagnosis: Problem not documented On 08-Nov-2014 08:30 Appointment; aTy Bailey Encounter Diagnosis: Problem not documented On 28-May-2014 08:45 Appointment; Adria Ordoñez Encounter Diagnosis: Problem not documented On 07-May-2014 06:00 Appointment; Adria Ordoñez Encounter Diagnosis: Problem not documented On 03-May-2014 08:30
--- OUTSIDE RECORDS SUMMARY | 2016-10-28 05:48 | XMS REPORT ---
Author Author GENERATED, SYSTEM Organization Unknown Address Unknown Phone Unavailable Care Team Providers Care Senior Lead Developer Name Role Phone UNASSIGNED DOCTOR , DOCTOR PP [phone] Reason For Visit Chief Complaint E11.9 N40.0 [...] H (65-99 MG/DL) *GFR EST NON AFR BURMESE 79 ML/MIN *GFR EST AFR AMER >90 [...]
--- OUTSIDE RECORDS SUMMARY | 2016-10-28 05:48 | XMS REPORT | Summary of Care ---
Author Author Flakito Clark M.D. Organization Unknown Address Unknown Phone Unavailable Care Team Providers Care Vehicle Window Tinter Name Role Phone Flakito Clark M.D. Unavailable [...] Problem not documented On 08-Nov-2014 08:30 Appointment; Tay Bailey Encounter Diagnosis: Problem not documented On 28-May-2014 08:45 Appointment; Adria Ordoñez Encounter Diagnosis: Problem not documented On 07-May-2014 06:00 Appointment; Adria Ordoñez Encounter Diagnosis: Problem not documented On 03-May-2014 08:30
--- OUTSIDE RECORDS SUMMARY | 2016-10-28 05:48 | XMS REPORT | Continuity of Care Document ---
Author Author [facility] Organization [facility] Address Unknown Phone Unavailable Allergies Active Description Code Type Severity Reaction Onset Reported/Identified Relationship to Patient Clinical Status Yes 06/06 NKDA Drug Allergy N/A N/A Medications Problems Procedures Results Test Result Range HEMOGLOBIN A1C - 08/06/16 08:10 HEMOGLOBIN A1C 5.8 % 4.5-6.2 EST AVG. GLUCOSE - 08/06/16 08:10 EST AVG. GLUCOSE 119.8 g/dL NRG CBC WITH PLATELET AND DIFFERENTIAL - 08/06/16 08:10 SEGS 84.6 % NRG *BASOPHILS 0.6 % NRG *EOSINOPHILS 2.7 % NRG AUTOMATED DIFF PERFORMED NRG *LYMPHOCYTES 5.9 % NRG *MONOCYTES 6.2 % NRG *ABSOLUTE BASOPHILS 0.10 10*3/uL 0.00- 0.20 *ABSOLUTE EOSINOPHILS 0.20 10*3/uL 0.00- 0.50 *ABSOLUTE LYMPHOCYTES 0.50 10*3/uL 1.00- 3.00 *ABSOLUTE MONOCYTES 0.50 10*3/uL 0.30- 1.00 *ABSOLUTE NEUTROPHILS 6.70 10*3/uL 1.80- 7.80 MPV 9.0 fL 7.4-10.4 PLATELETS 134 10*3/uL 159-386 WBC 7.9 10*3/uL 3.6-11.2 RBC 5.66 4.06-5.63 HEMOGLOBIN 16.0 12.5-16.3 HEMATOCRIT 47.5 % 36.7-47.1 MCV 83.9 fL 80.0-100.0 MCH 28.3 pg 27.0-33.0 MCHC 33.8 32.0-36.0 RDW 13.2 % 12.3-17.0 RDWSD 39.4 37.1-47.8 COMPREHENSIVE METABOLIC PANEL - 08/06/16 08:10 SODIUM 138 mmol/L 136-145 POTASSIUM 3.6 mmol/L 3.5-5.1 CHLORIDE 102 mmol/L 98-107 TCO2 27.9 mmol/L 21.0-32.0 *ANION GAP 8.1 mmol/L 8.0-16.0 BUN 16 7-18 CREATININE 1.10 0.70-1.30 *BUN/CREATININE RATIO 14.5 9.1-17.0 GLUCOSE 124 65-99 CALCIUM 8.9 8.5-10.1 BILIFUBIN TOTAL 0.60 0.20-1.00 TOTAL PROTEIN 7.6 6.4-8.2 ALBUMIN 3.9 3.4-5.0 *GLOBULIN 3.7 2.3-3.5 *A/G RATIO 1.1 1.5-2.2 ALK PHOS 73 U/L 46-116 ALT (SGPT) 46 U/L 14-59 AST (SGOT) 26 U/L 15-37 GFR ESTIMATION - 08/06/16 08:10 *GFR EST NON AFR [place]IZ[place] 67 mL/min NRG *GRFA EST AFR AMER 78 mL/min NRG Encounters ACCT No. Visit Date/Time Discharge Status Pt. Type Provider Facility Loc./Unit Complaint [id number] 08/06/2016 07:49:00 2016 03:30:00 DIS Outpatient BETHANY LOYD E11.9, I10 [id number] 04/22/2016 08:31:00 2015 03:30:02 [facility] [id number] 02/03/2016 08:08:00 2015 03:30:00 DIS Outpatient BETHANY LOYD E11.9 N40.0 I10 [id number] 07/18/2015 08:02:00 2015 03:30:01 DIS Outpatient BETHANY LOYD [id number] 01/18/2015 15:40:00 2014 03:30:02 DIS Outpatient LOYD BEARD [id number] 01/07/2015 07:57:00 2014 03:30:01 DIS Outpatient BETHANY LOYD [id number] 01/03/2016 07:57:00 ACT Outpatient LOYD BEARD N40.1
[2016-10-28] MEDS ORDERED: FLEET PHOSPHO-SODA 133 ML ENEMA RECTALLY PRN (06:45)
[2016-10-28] MEDS ORDERED: MIDAZOLAM 5mg/5ml INJECTION ONE ×2 (06:48→07:03)
[2016-10-28] MEDS ORDERED: FENTANYL 100mcg/2ml INJECTION ONE (06:48)
[2016-10-28] MEDS ORDERED: SALINE FLUSH 10ml SYRINGE ONE (06:48)
[2016-10-28] MEDS ORDERED: LIDOCAINE 1% (10mg/ml) 2ml SDV INJ ONE (07:00)
[2016-10-28] MEDS ORDERED: LR 1,000 ML IV SCH (07:00)
[2016-10-28] MEDS ORDERED: FENTANYL 100mcg/2ml INJECTION IV PRN (07:41)
[2016-10-28] MEDS ORDERED: MIDAZOLAM 5mg/5ml INJECTION IV PRN (07:41)
--- NOTE | 2016-10-28 13:27 | OPNOTEF ---
DATE OF OPERATION 10/28/2016 INDICATION History of colon polyps. Family history of colon cancer. OPERATION Colonoscopy SURGEON Russell Mix D.O. ASA CLASSIFICATION II Consent signed and on the chart. Routine monitoring with ECG, continuous oximetry and noninvasive blood pressure was performed throughout the procedure and found to be within normal limits. IV sedation was performed with 9 mg of Versed and 90 mcg of Fentanyl. Prior to the procedure, the patient was brought to the endoscopy lab where a brief review of his medical history and physical exam was performed. The procedure was described to him and he was agreeable to continue. All questions were answered. DESCRIPTION OF OPERATION He was given IV sedation and placed in the left lateral decubitus position. A digital rectal exam revealed mildly enlarged prostate with central right nodule. No other masses. The colonoscope was introduced through the anal verge and advanced to the cecum. Upon reaching the cecum, careful inspection of the mucosa was performed. At the proximal ascending colon, there was a small polyp which was removed by cold forceps biopsy. The remainder of his ascending, transverse, descending, sigmoid colon and rectum were free of pathology. He tolerated the procedure well. There were no complications. IMPRESSION Small polyp removed at the proximal ascending colon, otherwise normal exam. RECOMMENDATIONS 1. Review the path report when available. 2. Repeat as indicated. KARISHMAD
== END 2016-10-28 08:40 | disposition home or self-care (01) ==
LOC: NSC 05:44
PROVIDERS: ATTEND Internal Medicine
DX: Z12.11 Encounter for screening for malignant neoplasm of colon (principal); D12.2 Benign neoplasm of ascending colon; Z86.010 Personal history of colon polyps; Z80.0 Family history of malignant neoplasm of digestive organs; I10 Essential (primary) hypertension; N40.0 Benign prostatic hyperplasia without lower urinary tract symptoms; E11.9 Type 2 diabetes mellitus without complications; Z79.82 Long term (current) use of aspirin; Z79.899 Other long term (current) drug therapy
CPT/HCPCS: 45380; 82948; J2250; J3010; J7120